=== PATIENT | male | born 1960 | race African-American/Black ===

== ENCOUNTER 2016-05-21 10:05 | Inpatient (IN) | payer OTHER ==
[2016-05-21 10:29] VITALS: BMI 27.8
--- NOTE | 2016-05-21 11:33 | HP ---
COWS - Scale Resting Pulse: 1= NE 81-100 Sweatin=Flushed/Facial Moisture Restless Observation: 3= Extraneous Movement Pupil Size: 2= Moderately Dilated Bone or Joint Aches: 2= Severe Diffuse Aches Runny Nose/ Eye Tearin= Runny Nose/Eyes GI Upset > 30mins: 3= Vomiting/Diarrhea Tremor Observation: 2= Slight Tremor Visible Yawning Observation: 2= >3x During Session Anxiety or Irritability: 2=Irritable/Anxious Goose Flesh Skin: 0=Smooth Skin COWS Score: 21 Admission ROS BHS - HPI Chief Complaint: i need help to stop using drug heroin Allergies/Adverse Reactions: Allergies Allergy/AdvReac Type Severity Reaction Status Date / Time citric acid Allergy Severe Hives Verified 05/21/16 11:19 orange Allergy Severe Hives Verified 05/21/16 11:19 tomato Allergy Severe Hives Verified 05/21/16 11:19 History of Present Illness: this 56 years old male with heroin dependence,withdrawal symptom,last detox 2001 s/p surgery for perforated ulcer rheumatoid arthritis depression longest period of sobriety 3 and half years Exam Limitations: No Limitations - Ebola screening Have you traveled outside of the country in the last 21 days: No Have you had contact with anyone from an Ebola affected area: No Have you been sick,other than usual withdrawal symptoms: No - Review of Systems Constitutional: Diaphoresis, Loss of Appetite, Malaise, Night Sweats, Changes in sleep, Weakness EENT: reports: Tearing, Nose Congestion Respiratory: reports: No Symptoms reported Cardiac: reports: No Symptoms Reported GI: reports: Diarrhea, Nausea, Vomiting, Abdominal cramping : reports: No Symptoms Reported, Other (perforated ulcer) Musculoskeletal: reports: Back Pain, Joint Pain, Muscle Pain, Joint Stiffness, Other (rheumatoid arthritis with deformity bothh hands) Neuro: reports: Headache, Tremors Endocrine: reports: No Symptoms Reported Hematology: reports: No Symptoms Reported Psychiatric: reports: Depressed Other Systems: Reviewed and Negative Patient History - Patient Medical History Hx Anemia: No Hx Asthma: No Hx Chronic Obstructive Pulmonary Disease (COPD): No Hx Cancer: No Hx Cardiac Disorders: No Hx Congestive Heart Failure: No Hx Hypertension: No Hx Pacemaker: No HX Cerebrovascular Accident: No Hx Seizures: No Hx Dementia: No Hx Diabetes: No Hx Gastrointestinal Disorders: Yes (prforated peptic ulcer) Hx Liver Disease: No Hx Genitourinary Disorders: No Hx Sexually Transmitted Disorders: No Hx Renal Disease (ESRD): No Hx Thyroid Disease: No Hx Human Immunodeficiency Virus (HIV): No (last 2014 negative) Hx Hepatitis C: No Hx Depression: Yes (no med) Hx Suicide Attempt: No Hx Bipolar Disorder: No Hx Schizophrenia: No Other Medical History: no suicidal,no homicidal,severe rheumatiod arthritis with deformity both [place] - Patient Surgical History Past Surgical History: Yes Hx Abdominal Surgery: Yes (perforated peptic ulcer in 2000) Hx Orthopedic Surgery: Yes (corrective surgery both feet in 2004,2009) - PPD History Previous Implant?: Yes Documented Results: Negative w/o proof Implanted On Prior [facility] Admission?: Yes PPD to be Administered?: Yes - Smoking Cessation Smoking history: Current every day smoker Have you smoked in the past 12 months: Yes Aproximately how many cigarettes per day: 10 Cigars Per Day: 0 Hx Chewing Tobacco Use: No Initiated information on smoking cessation: Yes 'Breaking Loose' booklet given: 05/21/16 - Substance & Tx. History Hx Alcohol Use: No Hx Substance Use: Yes Substance Use Type: Heroin Hx Substance Use Treatment: Yes (last 2001 [facility]) - Substances Abused Heroin Route: Inhalation Frequency: Daily Amount used: 12 bags Age of first use: 25 Date of Last Use: 05/20/16 Family Disease History - Family Disease History Family Disease History: Other: Mother (rheumatoid arthritis decased) Admission Physical Exam BHS - Vital Signs Vital Signs: Vital Signs - 24 hr 05/21/16 10:26 Temperature 96.4 F L Pulse Rate 84 Respiratory 18 Rate Blood Pressure 142/96 - Physical General Appearance: Yes: Moderate Distress, Tremorous, Irritable, Sweating, Anxious HEENTM: Yes: Normocephalic, Pharynx Normal, Nasal Congestion Respiratory: Yes: Lungs Clear, Normal Breath Sounds, No Respiratory Distress Neck: Yes: Within Normal Limits, Supple, Trachea in good position Breast: Yes: Within Normal Limits Cardiology: Yes: Within Normal Limits, Regular Rhythm, Regular Rate, S1, S2 Abdominal: Yes: Within Normal Limits, Normal Bowel Sounds, Non Tender, Flat, Soft, Surgical Scar Genitourinary: Yes: Within Normal Limits Back: Yes: Normal Inspection, Muscle Spasm Musculoskeletal: Yes: Back pain, Muscle Pain Extremities: Yes: Normal Inspection, Normal Range of Motion, Other (deformities both hands) Neurological: Yes: Within Normal Limits, drawbridge tender II-XII NML intact, Fully Oriented, Alert, Motor Strength 5/5 Integumentary: Yes: Dry Lymphatic: Yes: Within Normal Limits - Diagnostic (1) Opioid dependence with withdrawal Current Visit: Yes Status: Acute (2) Rheumatoid arthritis Current Visit: Yes Status: Acute (3) Depression Current Visit: Yes Status: Acute (4) Peptic ulcer Current Visit: Yes Status: Acute Cleared for Admission [facility] - Detox or Rehab [facility] Level of Care: Medically Managed Detox Regimen/Protocol: Methadone [facility] Breath Alcohol Content Breath Alcohol Content: 0 Urine Drug Screen - Results Drug Screen Negative: No Urine Drug Screen Results: THC-Marijuana, OPI-Opiates, BZO-Benzodiazepines
[2016-05-21] MEDS ORDERED: IBUPROFEN 400 MG TABLET (FP) PO PRN (11:52)
[2016-05-21] MEDS ORDERED: MAG HYDROX/AL HYDROX/SIMETH 30 ML UNIT-DOSE CUP PO PRN (11:52)
[2016-05-21] MEDS ORDERED: MAGNESIUM CITRATE 300 ML BOTTLE PO PRN (11:52)
[2016-05-21] MEDS ORDERED: MENTHOL/PHENOL 1 EACH UD MM PRN (11:52)
[2016-05-21] MEDS ORDERED: ACETAMINOPHEN 325 MG TABLET (FP) PO PRN (11:52)
[2016-05-21] MEDS ORDERED: LOPERAMIDE HCL 2 MG CAPSULE PO PRN (11:52)
[2016-05-21] MEDS ORDERED: guaiFENesin/D-METHORPHAN HB 10 ML UNIT-DOSE CUPS PO PRN (11:52)
[2016-05-21] MEDS ORDERED: MAGNESIUM HYDROX 2400MG/30ML ORAL SUSPENSION 30 ML CUP PO PRN (11:52)
[2016-05-21] MEDS ORDERED: P-EPHED 60MG/TRIPROLIDI 2.5MG TABLET PO PRN (11:52)
[2016-05-21] MEDS ORDERED: METHADONE HCL 10 MG TABLET (FOR DETOX USE ONLY) PO ONE ×2 (12:49→23:00)
[2016-05-21 16:31] LABS: URINE APPEARANCE CLEAR; URINE BILIRUBIN NEGATIVE (NEGATIVE); URINE BLOOD NEGATIVE (NEGATIVE); URINE COLOR YELLOW; URINE GLUCOSE (UA) NEGATIVE (NEGATIVE); URINE KETONE TRACE (NEGATIVE); URINE LEUK ESTERASE NEGATIVE (NEGATIVE); URINE NITRITE NEGATIVE (NEGATIVE); URINE PROTEIN NEGATIVE (NEGATIVE); URINE UROBILINOGEN NEGATIVE E.U./dl (0.2-1.0)
--- NOTE | 2016-05-21 17:41 | CONSULT ---
[facility] Psychiatric Consult - Data Date of interview: 05/21/16 Admission source: [facility] Identifying data: Readmission to [facility] for this 56 y/o AA male seeking detox treatment for heroin dependence.Patient is single,a father of two, domiciled,unemployed and supported on Disability benefits. Substance Abuse History: - Smoking Cessation. Smoking history: Current every day smoker. Have you smoked in the past 12 months: Yes. Aproximately how many cigarettes per day: 10. Cigars Per Day: 0. Hx Chewing Tobacco Use: No. Initiated information on smoking cessation: Yes. 'Breaking Loose' booklet given : 05/21/16. - Substance & Tx. History. Hx Alcohol Use: No. Hx Substance Use: Yes. Substance Use Type: Heroin. Hx Substance Use Treatment: Yes (last 2001 [facility]). - Substances Abused. Heroin. Route: Inhalation. Frequency: Daily. Amount used: 12 bags. Age of first use: 25. Date of Last Use: 05/20/16. Confirmed by patient. Medical History: Rheumatoid arthritis (contractured,deformed hands) and a history of peptic ulcer disease. Psychiatric History: Patient denies. Physical/Sexual Abuse/Trauma History: Patient denies. Additional Comment: Urine Drug Screen Results: THC-Marijuana, OPI-Opiates, BZO- Benzodiazepines.Noted. Mental Status Exam - Mental Status Exam Alert and Oriented to: Time, Place, Person Cognitive Function: Good Patient Appearance: Well Groomed (deformed hands due to rheumatoid arthritis) Mood: Hopeful, Euthymic Affect: Appropriate, Normal Range Patient Behavior: Fatigued, Appropriate, Cooperative Speech Pattern: Clear Voice Loudness: Normal Thought Process: Goal Oriented Thought Disorder: Not Present Hallucinations: Denies Suicidal Ideation: Denies Homicidal Ideation: Denies Insight/Judgement: Poor Sleep: Poorly, Difficulty falling asleep (requests a low dose of seroquel-25 mg/ at bedtime-for relief of insomnia) Appetite: Good Muscle strength/Tone: Normal Gait/Station: Normal Psychiatric Findings - Problem List ([place] 1, 2,3) (1) Opioid dependence with withdrawal Current Visit: Yes Status: Acute (2) Nicotine dependence Current Visit: Yes Status: Acute (3) Marijuana abuse Current Visit: Yes Status: Acute (4) Peptic ulcer Current Visit: Yes Status: Chronic (5) Rheumatoid arthritis Current Visit: Yes Status: Chronic (6) Insomnia Current Visit: Yes Status: Acute - Initial Treatment Plan Initial Treatment Plan: Psychoeducation.Detoxification in progress.Seroquel 25 mg po hs (patient's request).Side effects/benefits discussed with the patient.He agrees with this plan.Observation.
[2016-05-21] MEDS: diazePAM 5 MG TABLET PO PRN ×2 (17:48→22:17)
[2016-05-21] MEDS: QUEtiapine FUMARATE 25 MG TABLET (FP) PO SCH (22:17)
[2016-05-21] MEDS: THIAMINE HCL 100 MG TABLET (FP) PO SCH (22:17)
[2016-05-22] MEDS: diazePAM 5 MG TABLET PO PRN ×3 (06:25→22:12)
[2016-05-22 09:53] LABS: MCH 31.4 pg (25.7-33.7); MCHC 32.9 g/dl (32.0-35.9); MEAN CELL VOLUME 95.3 fl (80-96); MEAN PLT VOLUME 8.2 fl (7.5-11.1); RDW 13.9 % (11.9-15.9); WHITE BLOOD COUNT 11.4 K/mm3 (4.0-10.0)
[2016-05-22 10:00] LABS: ALBUMIN 3.5 g/dl (3.4-5.0); ALK PHOS 83 U/L (45-117); ANION GAP 9 (8-16); BILIRUBIN,TOTAL 0.4 mg/dL (0.2-1.0); CALCIUM 8.5 mg/dL (8.5-10.1); CO2 27 mmol/L (21-32); CREATININE 1.2 mg/dL (0.7-1.3); GLUCOSE,RANDOM 281 mg/dL (74-106); SGOT/AST 11 U/L (15-37); SGPT/ALT 20 U/L (12-78); TOT PROT 7.2 g/dl (6.4-8.2)
[2016-05-22] MEDS ORDERED: METHADONE HCL 10 MG TABLET (FOR DETOX USE ONLY) PO ONE (10:00)
[2016-05-22] MEDS: PRENATAL VITAMINS W/ FOLIC ACID TABLET (FP) PO SCH (10:14)
--- NOTE | 2016-05-22 10:54 | PN ---
S CIWA - CIWA Score Nausea/Vomitin Muscle Tremors: 2 Anxiety: 3 Agitation: 2 Paroxysmal Sweats: 3 Orientation: 0-Oriented Tacttile Disturbances: 2-Mild Itch/Numbness/Burn Auditory Disturbances: 0-None Visual Disturbances: 0-None Headache: 0-None Present CIWA-Ar Total Score: 14 BHS Progress Note (SOAP) Subjective: interrupted sleep, sweats , decreased appetite Objective: 05/22/16 10:52 Vital Signs Temperature 97.5 F L 05/22/16 09:53 Pulse Rate 111 H 05/22/16 09:53 Respiratory Rate 16 05/22/16 09:53 Blood Pressure 122/90 05/22/16 09:53 O2 Sat by Pulse Oximetry (%) Laboratory Tests 05/21/16 05/22/16 05/22/16 15:00 07:00 07:00 WBC 11.4 H RBC 5.12 Hgb 16.1 Hct 48.8 MCV 95.3 MCHC 32.9 RDW 13.9 MPV 8.2 Sodium 137 Potassium 3.6 Chloride 101 Carbon Dioxide 27 Anion Gap 9 BUN 13 Creatinine 1.2 Creat Clearance w eGFR > 60 Random Glucose 281 H Calcium 8.5 Total Bilirubin 0.4 AST 11 L ALT 20 Alkaline Phosphatase 83 Total Protein 7.2 Albumin 3.5 Urine Color Yellow Urine Appearance Clear Urine pH 5.0 Ur Specific [place] 1.026 Urine Protein Negative Urine Glucose (UA) Negative Urine Ketones Trace H Urine Blood Negative Urine Nitrite Negative Urine Bilirubin Negative Urine Urobilinogen Negative Ur Leukocyte Esterase Negative pt aox3 in nad ambulating hands , elbows , + nodules , jt deformities Assessment: 05/22/16 10:58 withdrawal sx's RA Plan: cont. detox increase fluids ensure bid
[2016-05-22 11:38] LABS: PLATELET COUNT 275 K/MM3 (134-434); PLATELET ESTIMATE ADEQUATE (NORMAL)
--- NOTE | 2016-05-22 15:31 | EKG ---
Test Reason : Blood Pressure : / mmHG Vent. Rate : 078 BPM Atrial Rate : 078 BPM P-R Int : 138 ms QRS Dur : 090 ms QT Int : 386 ms P-R-T Axes : 070 -08 021 degrees QTc Int : 440 ms NORMAL SINUS RHYTHM RIGHT ATRIAL ENLARGEMENT BORDERLINE ECG NO PREVIOUS ECGS AVAILABLE Confirmed by ELAINE FROST, AALIYAH ([id number]) on 05/22/2016 3:31:10 PM Referred By: Ulisses Horton Confirmed By:AALIYAH HENRY MD
[2016-05-22] MEDS: THIAMINE HCL 100 MG TABLET (FP) PO SCH (22:11)
[2016-05-22] MEDS: QUEtiapine FUMARATE 25 MG TABLET (FP) PO SCH (22:12)
[2016-05-23] MEDS ORDERED: METHADONE HCL 5 MG TABLET (FOR DETOX USE ONLY) PO ONE (10:00)
--- NOTE | 2016-05-23 10:07 | PN ---
BHS COWS - Scale Resting Pulse: 0= SC 80 or Below Sweatin=Flushed/Facial Moisture Restless Observation: 1= Difficult to Sit Still Pupil Size: 0= Normal to Room Light Bone or Joint Aches: 2= Severe Diffuse Aches Runny Nose/ Eye Tearin= Runny Nose/Eyes GI Upset > 30mins: 0= None Tremor Observation of Outstretched Hands: 2= Slight Tremor Visible Yawning Observation: 1= 1-2x During Session Anxiety or Irritability: 1=Feels Anxious/Irritable Goose Flesh Skin: 0=Smooth Skin COWS Score: 11 S Progress Note (SOAP) Subjective: sweats mild shakes interrupted sleep body aches especially hand but tolerable Objective: 05/23/16 10:02 Vital Signs Temperature 97.7 F 05/23/16 06:00 Pulse Rate 64 05/23/16 06:00 Respiratory Rate 18 05/23/16 06:00 Blood Pressure 119/69 05/23/16 06:00 O2 Sat by Pulse Oximetry (%) Laboratory Tests 05/21/16 05/21/16 05/22/16 07:00 15:00 07:00 WBC 11.4 H RBC 5.12 Hgb 16.1 Hct 48.8 MCV 95.3 MCHC 32.9 RDW 13.9 Plt Count 275 MPV 8.2 Platelet Estimate Adequate Platelet Comment No clumping noted Sodium Potassium Chloride Carbon Dioxide Anion Gap BUN Creatinine Creat Clearance w eGFR Random Glucose Calcium Total Bilirubin AST ALT Alkaline Phosphatase Total Protein Albumin Urine Color Yellow Urine Appearance Clear Urine pH 5.0 Ur Specific [place] 1.026 Urine Protein Negative Urine Glucose (UA) Negative Urine Ketones Trace H Urine Blood Negative Urine Nitrite Negative Urine Bilirubin Negative Urine Urobilinogen Negative Ur Leukocyte Esterase Negative RPR Titer Hepatitis C Antibody 0.1 05/22/16 05/22/16 07:00 07:00 WBC RBC Hgb Hct MCV MCHC RDW Plt Count MPV Platelet Estimate Platelet Comment Sodium 137 Potassium 3.6 Chloride 101 Carbon Dioxide 27 Anion Gap 9 BUN 13 Creatinine 1.2 Creat Clearance w eGFR > 60 Random Glucose 281 H Calcium 8.5 Total Bilirubin 0.4 AST 11 L ALT 20 Alkaline Phosphatase 83 Total Protein 7.2 Albumin 3.5 Urine Color Urine Appearance Urine pH Ur Specific [place] Urine Protein Urine Glucose (UA) Urine Ketones Urine Blood Urine Nitrite Urine Bilirubin Urine Urobilinogen Ur Leukocyte Esterase RPR Titer Nonreactive Hepatitis C Antibody awake/alert ambulating no acute distress Assessment: 05/23/16 10:07 withdrawal sx Plan: continue detox increase fluids
[2016-05-23] MEDS: PRENATAL VITAMINS W/ FOLIC ACID TABLET (FP) PO SCH (11:05)
[2016-05-23] MEDS: NICOTINE POLACRILEX 2 MG GUM BUC PRN (11:09)
[2016-05-23] MEDS: QUEtiapine FUMARATE 50 MG TABLET PO SCH (22:09)
[2016-05-23] MEDS: THIAMINE HCL 100 MG TABLET (FP) PO SCH (22:09)
[2016-05-24] MEDS: diazePAM 5 MG TABLET PO PRN (05:52)
[2016-05-24] MEDS ORDERED: METHADONE HCL 5 MG TABLET (FOR DETOX USE ONLY) PO ONE (10:00)
[2016-05-24] MEDS: PRENATAL VITAMINS W/ FOLIC ACID TABLET (FP) PO SCH (10:39)
--- NOTE | 2016-05-24 12:38 | PN ---
S Progress Note (SOAP) Subjective: ALERT,IRRITABLE,ANXIOUS,INTERRUPTED SLEEP,PAIN IN THE BODY AND BACK Objective: 05/24/16 12:39 Vital Signs Temperature 97.9 F 05/24/16 10:36 Pulse Rate 74 05/24/16 10:36 Respiratory Rate 16 05/24/16 10:36 Blood Pressure 136/90 05/24/16 10:36 O2 Sat by Pulse Oximetry (%) 05/24/16 12:41 EKG NSR Laboratory Last Values WBC 11.4 K/mm3 (4.0-10.0) H 05/22/16 07:00 RBC 5.12 M/mm3 (4.00-5.60) 05/22/16 07:00 Hgb 16.1 GM/dL (11.7-16.9) 05/22/16 07:00 Hct 48.8 % (35.4-49) 05/22/16 07:00 MCV 95.3 fl (80-96) 05/22/16 07:00 MCHC 32.9 g/dl (32.0-35.9) 05/22/16 07:00 RDW 13.9 % (11.9-15.9) 05/22/16 07:00 Plt Count 275 K/MM3 (134-434) 05/22/16 07:00 MPV 8.2 fl (7.5-11.1) 05/22/16 07:00 Platelet Estimate Adequate (NORMAL) 05/22/16 07:00 Platelet Comment No clumping noted 05/22/16 07:00 Sodium 137 mmol/L (136-145) 05/22/16 07:00 Potassium 3.6 mmol/L (3.5-5.1) 05/22/16 07:00 Chloride 101 mmol/L (98-107) 05/22/16 07:00 Carbon Dioxide 27 mmol/L (21-32) 05/22/16 07:00 Anion Gap 9 (8-16) 05/22/16 07:00 BUN 13 mg/dL (7-18) 05/22/16 07:00 Creatinine 1.2 mg/dL (0.7-1.3) 05/22/16 07:00 Creat Clearance w eGFR > 60 (>60) 05/22/16 07:00 Random Glucose 281 mg/dL (74-106) H 05/22/16 07:00 Calcium 8.5 mg/dL (8.5-10.1) 05/22/16 07:00 Total Bilirubin 0.4 mg/dL (0.2-1.0) 05/22/16 07:00 AST 11 U/L (15-37) L 05/22/16 07:00 ALT 20 U/L (12-78) 05/22/16 07:00 Alkaline Phosphatase 83 U/L (45-117) 05/22/16 07:00 Total Protein 7.2 g/dl (6.4-8.2) 05/22/16 07:00 Albumin 3.5 g/dl (3.4-5.0) 05/22/16 07:00 Urine Color Yellow 05/21/16 15:00 Urine Appearance Clear 05/21/16 15:00 Urine pH 5.0 (5.0-8.0) 05/21/16 15:00 Ur Specific [place] 1.026 (1.001-1.035) 05/21/16 15:00 Urine Protein Negative (NEGATIVE) 05/21/16 15:00 Urine Glucose (UA) Negative (NEGATIVE) 05/21/16 15:00 Urine Ketones Trace (NEGATIVE) H 05/21/16 15:00 Urine Blood Negative (NEGATIVE) 05/21/16 15:00 Urine Nitrite Negative (NEGATIVE) 05/21/16 15:00 Urine Bilirubin Negative (NEGATIVE) 05/21/16 15:00 Urine Urobilinogen Negative E.U./dl (0.2-1.0) 05/21/16 15:00 Ur Leukocyte Esterase Negative (NEGATIVE) 05/21/16 15:00 RPR Titer Nonreactive (NONREACTIVE) 05/22/16 07:00 Hepatitis C Antibody 0.1 s/co ratio (0.0-0.9) 05/21/16 07:00 Assessment: 05/24/16 12:40 05/24/16 12:43 WITHDRAWAL SYMPTOM Plan: CONTINUE DETOX,BGM MONITORING,INITIAL GLUCOSE IS 281
[2016-05-24] MEDS: NICOTINE POLACRILEX 2 MG GUM BUC PRN (12:43)
[2016-05-24] MEDS: hydrOXYzine PAMOATE 50 MG CAPSULE (FP) PO PRN (17:47)
[2016-05-24] MEDS: QUEtiapine FUMARATE 50 MG TABLET PO SCH (22:18)
[2016-05-24] MEDS: diphenhydrAMINE HCL 50 MG CAPSULE PO PRN (22:18)
[2016-05-24] MEDS: THIAMINE HCL 100 MG TABLET (FP) PO SCH (22:18)
[2016-05-25] MEDS ORDERED: METHADONE HCL 10 MG TABLET (FOR DETOX USE ONLY) PO ONE (10:00)
[2016-05-25] MEDS: PRENATAL VITAMINS W/ FOLIC ACID TABLET (FP) PO SCH (10:31)
--- NOTE | 2016-05-25 11:46 | PN ---
BHS Progress Note (SOAP) Subjective: ALERT,IRRITABLE,ANXIOUS,INTERRUPTED SLEEP Objective: 05/25/16 11:43 Vital Signs Temperature 97.7 F 05/25/16 09:57 Pulse Rate 74 05/25/16 09:57 Respiratory Rate 16 05/25/16 09:57 Blood Pressure 133/89 05/25/16 09:57 O2 Sat by Pulse Oximetry (%) BGM 158 Assessment: 05/25/16 11:43 WITHDRAWAL SYMPTOM Plan: CONTINUE DETOX,ADDRESSED WITH PATIENT ABOUT ELEVATION OF GLUCOSE,PATIENT WILL SEE HIS PMD UPON DISCHARGE FOR FOLLOW UP,[facility] ST[facility] CHANGING OF DIET DISCHARGE IN AM AT 07.30
--- NOTE | 2016-05-25 11:47 | PN ---
S Progress Note Note: PATIENT WILL BE DISCHARGED IN AM AT 0700
[2016-05-25] MEDS: NICOTINE POLACRILEX 2 MG GUM BUC PRN (13:35)
[2016-05-25] MEDS: hydrOXYzine PAMOATE 50 MG CAPSULE (FP) PO PRN (18:28)
[2016-05-25] MEDS: THIAMINE HCL 100 MG TABLET (FP) PO SCH (22:07)
[2016-05-25] MEDS: QUEtiapine FUMARATE 50 MG TABLET PO SCH (22:07)
[2016-05-25] MEDS: diphenhydrAMINE HCL 50 MG CAPSULE PO PRN (22:08)
[2016-05-25 23:07] VITALS: TEMP 97.9
[2016-05-26] MEDS ORDERED: METHADONE HCL 5 MG TABLET (FOR DETOX USE ONLY) PO ONE (06:00)
[2016-05-26 06:34] VITALS: BP 121/75; PULSE 80
--- NOTE | 2016-05-26 08:57 | DS ---
[facility] Detox Discharge Summary Admission Date: 05/21/16 Discharge Date: 05/26/16 - History Present History: Cannabis Dependence, Opioid Dependence - Physical Exam Results Vital Signs: Vital Signs Temperature 97.9 F 05/26/16 06:00 Pulse Rate 80 05/26/16 06:00 Respiratory Rate 18 05/26/16 06:00 Blood Pressure 121/75 05/26/16 06:00 O2 Sat by Pulse Oximetry (%) - Treatment Hospital Course: Detox Protocol Followed, Detoxed Safely, Responded well, Discharged Condition Good, Rehab Referral Accepted - Medication Discharge Medications: Ambulatory Orders Quetiapine Fumarate [Seroquel -] 25 mg PO HS #30 tablet 05/21/16 - Diagnosis (1) Depression Current Visit: Yes Status: Acute (2) Insomnia Current Visit: Yes Status: Acute (3) Marijuana abuse Current Visit: Yes Status: Acute (4) Nicotine dependence Current Visit: Yes Status: Chronic Qualifiers: Substance use status: uncomplicated (5) Opioid dependence with withdrawal Current Visit: Yes Status: Chronic (6) Peptic ulcer Current Visit: Yes Status: Chronic (7) Rheumatoid arthritis Current Visit: Yes Status: Chronic - AMA Did Patient Leave Against Medical Advice: No
== END 2016-05-26 08:45 | disposition home or self-care (01) | DRG 773 ==
LOC: YASAS 10:05 → Y6N 11:44
PROVIDERS: ADMIT Internal Medicine Addiction Medicine; ATTEND Internal Medicine Addiction Medicine
PROC: HZ2ZZZZ Detoxification Services for Substance Abuse Treatment (ICD-10-PCS; principal; 2016-05-26)
DX: F11.23 Opioid dependence with withdrawal (principal); F12.10 Cannabis abuse, uncomplicated; F17.210 Nicotine dependence, cigarettes, uncomplicated; F32.9 Major depressive disorder, single episode, unspecified; G47.00 Insomnia, unspecified; K27.9 Peptic ulcer, site unspecified, unspecified as acute or chronic, without hemorrhage or perforation; M06.9 Rheumatoid arthritis, unspecified
CPT/HCPCS: 36415; 80053; 81003; 85027; 86593; 93005; 93010